=== PATIENT | female | born 1940 | race Caucasian/White ===

== ENCOUNTER 2017-01-20 12:16 | Inpatient (IN) | payer MEDICARE ==
[2017-01-20] MEDS ORDERED: LORazepam 0.5 MG TAB PO ONE (13:10)
[2017-01-20 13:30] VITALS: BMI 23.7
[2017-01-20] MEDS ORDERED: ACETAMINOPHEN TAB 325 MG TAB PO PRN (13:33)
[2017-01-20] MEDS ORDERED: ASPIRIN 325 MG TAB PO STA (14:39)
[2017-01-20] MEDS ORDERED: SODIUM CHLORIDE 0.9% 1,000 ML in EMPTY BAG 1 BAG IV ONE (14:39)
[2017-01-20] MEDS ORDERED: NITROGLYCERIN SL TABS 0.4 MG TAB SUBLINGUAL PRN (14:39)
[2017-01-20] MEDS ORDERED: ATORVASTATIN 80 MG TAB PO STA (14:39)
--- NOTE | 2017-01-20 14:43 | P.CRDCN ---
History of Present Illness Consult date: 01/20/17 Chief complaint: Chest discomfort History of present illness: This is a pleasant 76-year-old female patient with a past medical history significant for hypertension and dyslipidemia who presented to [facility] a few days ago with a chest discomfort. The patient was diagnosed with uncontrolled hypertension and acute pulmonary edema. She was started on Lasix IV with significant improvement in the shortness of breath. The EKG showed sinus rhythm with ST and T wave abnormalities in the anteroseptal leads concerning for ischemia. Echocardiogram showed moderate to severe LV dysfunction with hypokinesia of the inferior wall. The patient was seen and evaluated by Dr. Rosas who recommended proceeding with heart catheterization to rule out any severe underlying CAD. The patient is a scheduled to undergo heart catheterization in the a.m. Past Medical History Past Medical History: Hypertension History of Any Multi-Drug Resistant Organisms: None Reported Past Anesthesia/Blood Transfusion Reactions: No Reported Reaction Past Psychological History: No Psychological Hx Reported Smoking Status: Former smoker Past Alcohol Use History: None Reported Past Drug Use History: Opiates - Past Family History Father Family Medical History: Congestive Heart Failure (CHF) Mother Additional Family Medical History / Comment(s): Segunysm Medications and Allergies Home Medications Medication Instructions Recorded Confirmed Type Acetaminophen [Tylenol] 650 mg PO Q4H 01/20/17 01/20/17 History L.acidoph,Paracasei, B.lactis 1 cap PO DAILY 01/20/17 01/20/17 History [Probiotic] Labetalol [Trandate] 200 mg PO BID 01/20/17 01/20/17 History Lisinopril [Zestril] 20 mg PO DAILY 01/20/17 01/20/17 History Verapamil [Isoptin] 40 mg PO BID 01/20/17 01/20/17 History Allergies Allergy/AdvReac Type Severity Reaction Status Date / Time morphine Allergy Anaphylaxis Verified 01/20/17 13:38 Penicillins Allergy Anaphylaxis Verified 01/20/17 13:38 phenobarbital Allergy Anaphylaxis Verified 01/20/17 13:38 IVP Dye Allergy Anaphylaxis Uncoded 01/20/17 13:10 Physical Exam Vitals: Vital Signs Temp Pulse Resp BP Pulse Ox 01/20/17 12:31 98.3 F 88 16 153/85 96 Intake and Output 01/19/17 01/20/17 01/20/17 22:59 06:59 14:59 Other: Weight 64.7 kg Patient Weight 01/21/17 06:59 Weight 64.7 kg - Constitutional General appearance: no acute distress - Respiratory Respiratory: bilateral: diminished - Cardiovascular Rhythm: regular Heart sounds: normal: S1, S2 Results Current Medications Generic Name Dose Route Start Last Admin Trade Name Freq PRN Reason Stop Dose Admin Acetaminophen 650 mg 01/20/17 13:33 01/20/17 13:39 Tylenol Tab PO 650 mg Q6HR PRN Administration Fever and/ or Pain Intake and Output 01/19/17 01/20/17 01/20/17 22:59 06:59 14:59 Other: Weight 64.7 kg Patient Weight 01/21/17 06:59 Weight 64.7 kg Assessment and Plan Plan: This is a pleasant 76-year-old female patient with prior hypertension who was admitted to the hospital with congestive heart failure. She was found to have cardiomyopathy and known if is ischemic or nonischemic. The EKG changes as well as echocardiogram findings are consistent with severe underlying CAD. The patient is scheduled to undergo a heart catheterization was Dr. Hernández tomorrow.
[2017-01-20 15:06] LABS: Basophils % (A) 0 %; CHCM 32.4; Eosinophils # (A) 0.1 k/uL (0-0.7); Eosinophils % (A) 2 %; HCT 42.6 % (34.0-46.0); HDW 2.41; HGB 14.2 gm/dL (11.4-16.0); Luc # (Auto) 0.13; Luc % (Auto) 2; Lymphocytes % (A) 13 %; MCHC 33.4 g/dL (31.0-37.0); Mean Platelet Volume 8.5; Monocytes # (A) 0.5 k/uL (0-1.0); Monocytes % (A) 7 %; Neutrophils # (A) 5.6 k/uL (1.3-7.7); Neutrophils % (A) 77 %; RBC 4.59 m/uL (3.80-5.40); RDW 13.5 % (11.5-15.5); WBC 7.3 k/uL (3.8-10.6); WBC (Perox) 7.51
[2017-01-20 15:17] LABS: Anion Gap 13 mmol/L; Blood Urea Nitrogen 24 mg/dL (7-17); Calcium 9.2 mg/dL (8.4-10.2); Carbon Dioxide 22 mmol/L (22-30); Chloride 107 mmol/L (98-107); Glucose 150 mg/dL (74-99); Non-African American GFR(MDRD) >60 (>60 ml/min/1.73 sqM); Sodium 142 mmol/L (137-145)
[2017-01-20 15:20] LABS: INR 0.9 (<1.2); Prothrombin Time 9.7 sec (9.0-12.0)
--- NOTE | 2017-01-20 16:03 | P.HPIM ---
History of Present Illness H&P Date: 01/20/17 Chief Complaint: chest pain/acute systolic heart failure This is a 76-year-old female one of Dr. Hernández and Dr. Browinng with a previous medical history significant hypertension and hypertensive cardio vascular disease, hyperlipidemia, history of neuropathy, glaucoma, peptic ulcer disease status post EGD with, history of remote seizure disorder back 35 years ago, history of narcotic dependence, apparently patient was in her usual state of health about 2 month ago when she developed to have an increased shortness breath associated with increased weakness , patient woke up on morning complaining of increased shortness of breath she could not even walk for few steps she ended up admitted to the hospital at [facility] she was seen in consultation by cardiology she had an echocardiogram that showed a severe LV dysfunction with the inferior wall hypokinesia with an EKG suggestive of ischemia patient was transferred from [facility] to [facility] and she was admitted under were service and she is scheduled to go for left heart catheterization tomorrow morning. Review of Systems Constitutional: Reports weakness, Denies anorexia, Denies chronic headaches, Denies lethargy, Denies malaise, Denies weight gain, Denies weight loss Eyes: denies blurred vision, denies bulging eye, denies decreased vision, denies diplopia Ears: deny: decreased hearing Ears, nose, mouth and throat: Denies dysphagia, Denies sore throat, Denies vertigo Cardiovascular: Reports chest pain, Reports dyspnea on exertion, Reports high blood pressure, Reports rapid heart beat, Reports shortness of breath, Denies claudication, Denies leg edema, Denies syncope Respiratory: Reports dyspnea, Denies congestion, Denies cough, Denies cough with sputum, Denies home oxygen, Denies sleep apnea, Denies snoring, Denies wheezing Gastrointestinal: Denies abdominal pain, Denies bloating, Denies BRBPR, Denies early satiety, Denies excessive gas, Denies loss of appetite, Denies melena, Denies nausea, Denies vomiting Genitourinary: Denies dysuria, Denies urgency Menstruation: Reports post hysterectomy, Reports postmenopausal Musculoskeletal: Denies myalgias Musculoskeletal: absent: ankle pain, ankle stiffness, ankle swelling, elbow pain , elbow stiffness, elbow swelling, foot pain, foot stiffness, foot swelling, hand pain, hand stiffness, hand swelling, hip pain, hip stiffness, hip swelling , knee pain, knee stiffness, knee swelling, shoulder pain, shoulder stiffness, shoulder swelling, wrist pain, wrist stiffness, wrist swelling Integumentary: Denies pruritus, Denies rash Neurological: Denies numbness, Denies weakness Psychiatric: Reports anxiety, Denies depression Endocrine: Denies fatigue, Denies weight change Past Medical History Past Medical History: Coronary Artery Disease (CAD), Hyperlipidemia, Hypertension, Osteoarthritis (OA), Thyroid Disorder History of Any Multi-Drug Resistant Organisms: None Reported Past Surgical History: Bowel Resection, Cholecystectomy, Hysterectomy Additional Past Surgical History / Comment(s): Thyroid nodule post ablation, exploratory laparotomy with bowel resection due to bowel obstruction, cholecystectomy, total abdominal hysterectomy with bilateral salpingo- oophorectomy due to endometriosis and fibroid tumors, bilateral cataract surgery. 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.) Past Alcohol Use History: None Reported Past Drug Use History: Opiates - Past Family History Father Family Medical History: Congestive Heart Failure (CHF) (father at age of 86 from congestive heart failure.) Mother Family Medical History: Congestive Heart Failure (CHF), Vascular Disorder ( mother at age of 82 from congestive heart failure also she had the brain aneurysm but she ended up dying from abdominal aortic aneurysm.) Additional Family Medical History / Comment(s): Anuerysm Sister(s) Family Medical History: Diabetes Mellitus (patient has one sister with diabetes mellitus type 2.) Daughter(s) Family Medical History: Diabetes Mellitus (patient has one daughter with diabetes mellitus type 2.) Son(s) Family Medical History: Cancer (patient has one son with metastatic stage IV lung cancer with metastases to the bone.) Medications and Allergies Home Medications Medication Instructions Recorded Confirmed Type Acetaminophen [Tylenol] 650 mg PO Q4H 01/20/17 01/20/17 History L.acidoph,Paracasei, B.lactis 1 cap PO DAILY 01/20/17 01/20/17 History [Probiotic] Labetalol [Trandate] 200 mg PO BID 01/20/17 01/20/17 History Lisinopril [Zestril] 20 mg PO DAILY 01/20/17 01/20/17 History Verapamil [Isoptin] 40 mg PO BID 01/20/17 01/20/17 History Allergies Allergy/AdvReac Type Severity Reaction Status Date / Time morphine Allergy Anaphylaxis Verified 01/20/17 13:38 Penicillins Allergy Anaphylaxis Verified 01/20/17 13:38 phenobarbital Allergy Anaphylaxis Verified 01/20/17 13:38 IVP Dye Allergy Anaphylaxis Uncoded 01/20/17 13:10 Physical Exam Vitals: Vital Signs Temp Pulse Resp BP Pulse Ox 01/20/17 12:31 98.3 F 88 16 153/85 96 Intake and Output 01/20/17 01/20/17 01/20/17 06:59 14:59 22:59 Other: Weight 64.7 kg Patient Weight 01/21/17 06:59 Weight 64.7 kg - Constitutional General appearance: mild distress - EENT Eyes: anicteric sclerae, EOMI, PERRLA, no ptosis, no scleral icterus, normal appearance ENT: hearing grossly normal, NA/AT, normal oropharynx, no thrush Ears: bilateral: normal - Neck Neck: no lymphadenopathy, normal ROM, no rigidity, no stridor, no thyromegaly Carotids: bilateral: upstroke normal Thyroid: bilateral: normal size - Respiratory Respiratory: bilateral: diminished, negative: dullness, rales, rhonchi, wheezing , prolonged expiration, prolonged inspiration - Cardiovascular Rhythm: regular Heart sounds: normal: S1, S2 Abnormal Heart Sounds: systolic murmur, no rub, S3 Gallop, no click - Gastrointestinal General gastrointestinal: normal bowel sounds, soft, no splenomegaly, no tenderness, no umbilical hernia, no ventral hernia - Integumentary Integumentary: normal, normal turgor - Neurologic Neurologic: CNII-XII intact - Musculoskeletal Musculoskeletal: gait normal, strength equal bilaterally - Psychiatric Psychiatric: A&O x's 3, appropriate affect, intact judgment & insight Results CBC & Chem 7: 01/20/17 14:55 01/20/17 14:55 Labs: Abnormal Lab Results - Last 24 Hours (Table) 01/20/17 Range/Units 14:55 BUN 24 H (7-17) mg/dL Creatinine 0.50 L (0.52-1.04) mg/dL Glucose 150 H (74-99) mg/dL Thrombosis Risk Factor Assmnt - DVT/VTE Prophylaxis DVT/VTE Prophylaxis: Pharmacologic Prophylaxis ordered, Mechanical Prophylaxis ordered - Choose All That Apply Any of the Below Risk Factors Present?: No Other Risk Factors: Yes Each Risk Factor Represents 2 Points: Age 61-74 years Other congenital or acquired thrombophilia - If yes, enter type in comment: No Thrombosis Risk Factor Assessment Total Risk Factor Score: 2 Thrombosis Risk Factor Assessment Level: Low Risk Assessment and Plan Plan: Assessment and plan: 1. Moderate LV dysfunction with inferior hypokinesia suggestive of CAD with cardiomyopathy. aspirin 325 mg orally once every day, labetalol 200 mg orally twice every day, lisinopril 20 mg orally once every day, hold off verapamil for now, Lipitor 80 mg orally once every day, patient is scheduled to go for left heart catheterization tomorrow morning with Dr. Rosas. 2. Hypertension and hypertensive cardio vascular disease. Continue labetalol 200 mg orally twice every day, lisinopril 20 mg orally once every day, hold off verapamil. 3. Hyperlipidemia. Lipitor 40 mg orally once every day. 4. Possible neuropathy. She would need to be evaluated as an outpatient with EMG nerve conduction study. 5. History of peptic ulcer disease. Continue patient on Protonix 40 mg orally once every day. 6. Glaucoma. Stable at this time. 7. DVT prophylaxis. Continue Lovenox 40 mg subcutaneously daily. 8. GI prophylaxis. Continue Protonix 40 mg orally once every day. 9. Patient is full code. 10. Admit to inpatient. Estimate a length of stay 2 midnights.
[2017-01-20] MEDS: ACETAMINOPHEN TAB 325 MG TAB PO SCH ×3 (17:18→23:42)
[2017-01-20] MEDS: ENOXAPARIN 40 MG/0.4 ML SYRINGE SQ SCH (17:21)
[2017-01-20] MEDS ORDERED: SODIUM CHLORIDE 0.9% 1,000 ML IV SCH (17:30)
[2017-01-20] MEDS: ALPRAZolam 0.25 MG TAB PO PRN (20:10)
[2017-01-20] MEDS: LABETALOL 200 MG TAB PO SCH (20:11)
[2017-01-20] MEDS: SODIUM CHLORIDE 0.9% 1,000 ML IV SCH (20:13)
[2017-01-21] MEDS: ALPRAZolam 0.25 MG TAB PO PRN ×2 (03:56→14:07)
[2017-01-21] MEDS: ACETAMINOPHEN TAB 325 MG TAB PO SCH ×3 (03:56→12:01)
[2017-01-21 04:25] LABS: Basophils % (A) 0 %; CH 30.5; CHCM 32.4; Eosinophils # (A) 0.1 k/uL (0-0.7); Eosinophils % (A) 1 %; HCT 39.4 % (34.0-46.0); HDW 2.41; HGB 12.7 gm/dL (11.4-16.0); Luc # (Auto) 0.18; Luc % (Auto) 3; Lymphocytes # (A) 1.2 k/uL (1.0-4.8); Lymphocytes % (A) 17 %; MCH 30.6 pg (25.0-35.0); MCHC 32.3 g/dL (31.0-37.0); MCV 94.7 fL (80.0-100.0); Mean Platelet Volume 9.2; Monocytes # (A) 0.6 k/uL (0-1.0); Monocytes % (A) 8 %; Neutrophils # (A) 4.8 k/uL (1.3-7.7); Neutrophils % (A) 70 %; RBC 4.16 m/uL (3.80-5.40); RDW 14.7 % (11.5-15.5); WBC 6.9 k/uL (3.8-10.6); WBC (Perox) 6.71
[2017-01-21 04:33] LABS: Anion Gap 11 mmol/L; Blood Urea Nitrogen 29 mg/dL (7-17); Carbon Dioxide 22 mmol/L (22-30); Chloride 109 mmol/L (98-107); Glucose 112 mg/dL (74-99); Non-African American GFR(MDRD) >60 (>60 ml/min/1.73 sqM); Potassium 4.2 mmol/L (3.5-5.1); Sodium 142 mmol/L (137-145)
[2017-01-21] MEDS: ENOXAPARIN 40 MG/0.4 ML SYRINGE SQ SCH (06:34)
[2017-01-21] MEDS ORDERED: ASPIRIN 325 MG TAB PO STA (06:37)
[2017-01-21] MEDS ORDERED: ATORVASTATIN 80 MG TAB PO STA (06:38)
[2017-01-21] MEDS: LABETALOL 200 MG TAB PO SCH (06:39)
[2017-01-21] MEDS ORDERED: methylPREDNISolone SOD SUCCI 125 MG/2 ML VIAL IV ONE (07:01)
[2017-01-21] MEDS ORDERED: methylPREDNISolone SOD SUCCI 125 MG/2 ML VIAL ONE (07:18)
[2017-01-21] MEDS ORDERED: diphenhydrAMINE 50 MG/ML 1 ML VIAL ONE (07:18)
[2017-01-21] MEDS ORDERED: MIDAZOLAM 2 MG/2 ML VIAL ONE (07:18)
[2017-01-21] MEDS ORDERED: LIDOCAINE 2% INJ 20 MG/ML (20 ML MDV) ONE (07:18)
[2017-01-21] MEDS ORDERED: PANTOPRAZOLE 40 MG TABLET PO SCH (07:30)
[2017-01-21] MEDS ORDERED: SODIUM CHLORIDE 0.9% 500 ML IV ONE (07:30)
[2017-01-21] MEDS ORDERED: methylPREDNISolone SOD SUCCI 125 MG/2 ML VIAL IVP ONE (07:36)
[2017-01-21] MEDS ORDERED: diphenhydrAMINE 50 MG/ML 1 ML VIAL IVP ONE (07:36)
[2017-01-21] MEDS: MIDAZOLAM 2 MG/2 ML VIAL IVP ONE ×2 (07:37→07:45)
[2017-01-21] MEDS ORDERED: LIDOCAINE 2% INJ 20 MG/ML SQ ONE (07:42)
[2017-01-21] MEDS ORDERED: FUROSEMIDE 10 MG/ML 4 ML VIAL ONE (07:59)
[2017-01-21] MEDS ORDERED: FUROSEMIDE 10 MG/ML 4 ML VIAL IVP ONE (08:00)
[2017-01-21] MEDS ORDERED: IODIXANOL 320 MG/ML 100 ML INTRAARTER ONE (08:04)
[2017-01-21] MEDS ORDERED: RX INFO: IV CONTRAST WAS GIVEN 1 EACH MISC MISCELLANE PRN (08:05)
--- NOTE | 2017-01-21 08:47 | CC ---
INDICATION: Cardiomyopathy with new onset congestive heart failure. PROCEDURE NOTE: After obtaining informed consent, left heart catheterization and coronary angiogram are performed via the right femoral artery using standard Venkatesh catheters. The patient tolerated the procedure well without any obvious immediate complications. A femoral angiogram was performed and decision was made for manual hemostasis. Patient received conscious sedation with total sedation time was 18 minutes. FINDINGS: 1. HEMODYNAMICS: Left ventricular end-diastolic pressure is ( ) mm. There is no significant gradient across the aortic valve. 2. LEFT VENTRICULOGRAM: The left ventriculogram is not performed. 3. ANGIOGRAPHIC DATA: Right coronary artery appears chronically occluded in its proximal part with extensive left to right collaterals. We used both ( ) and Venkatesh catheter to engaged it and aortogram was also performed to image the right coronary artery. Left main coronary artery is a normal size vessel and is free of stenosis, divides into left anterior descending coronary artery and circumflex coronary artery. Circumflex coronary artery and its branches show mild nonobstructive disease. LAD shows mild plaque in its mid portion. Aortogram was performed mainly to locate the right coronary artery. There is no evidence of aortic aneurysm or dissection. CONCLUSIONS: 1. Chronic total occlusion of the right coronary artery. 2. Elevated left ventricular end-diastolic pressures. PLAN: The patient's management is going to be in the form of optimal medical therapy with beta blockers, KRISTY inhibitors, diuretics, statins. Hopefully, she can be discharged home this evening if she is feeling well and off home O2 and follow up with me in a week's time. REINA
[2017-01-21] MEDS ORDERED: FUROSEMIDE 40 MG TAB PO SCH (09:00)
[2017-01-21] MEDS ORDERED: LACTOBACILLUS ACIDOPH & BULGAR 1 EACH PACKET PO SCH (09:00)
[2017-01-21] MEDS ORDERED: LISINOPRIL 20 MG TAB PO SCH (09:00)
[2017-01-21] MEDS: SODIUM CHLORIDE 0.9% 1,000 ML IV SCH ×2 (11:57→14:08)
[2017-01-21 12:33] VITALS: RESP 16
[2017-01-21 12:39] VITALS: BP 94/52; PULSE 79; TEMP 98.8
--- NOTE | 2017-01-21 15:17 | P.DS ---
Providers Date of admission: 01/20/17 12:16 Expected date of discharge: 01/21/17 Attending physician: Diann Handley Primary care physician: [facility] Course: This is a 76-year-old female one of Dr. Hernández and Dr. Browning with a previous medical history significant hypertension and hypertensive cardio vascular disease, hyperlipidemia, history of neuropathy, glaucoma, peptic ulcer disease status post EGD with, history of remote seizure disorder back 35 years ago, history of narcotic dependence, apparently patient was in her usual state of health about 2 month ago when she developed to have an increased shortness breath associated with increased weakness , patient woke up on morning complaining of increased shortness of breath she could not even walk for few steps she ended up admitted to the hospital at [facility] she was seen in consultation by cardiology she had an echocardiogram that showed a severe LV dysfunction with the inferior wall hypokinesia with an EKG suggestive of ischemia patient was transferred from [facility] to [facility] and she was admitted under were service and she is scheduled to go for left heart catheterization tomorrow morning. 01/21: Patient underwent heart catheterization that showed chronic total occlusion of the right coronary artery and elevated left ventricular end- diastolic pressure. No aortic aneurysm or dissection. Recommendations were to optimize medical therapy. Patient is feeling well in the afternoon after the procedure and is anxious to be discharged home. She has no chest pain or shortness of breath. Patient will be discharged home today in stable condition. Discharge diagnoses: 1. Moderate LV dysfunction with inferior hypokinesia suggestive of CAD with cardiomyopathy. 2. Hypertension and hypertensive cardio vascular disease. 3. Hyperlipidemia. 4. Possible neuropathy. She would need to be evaluated as an outpatient with EMG nerve conduction study. 5. History of peptic ulcer disease. 6. Glaucoma. Stable at this time. Discharge plan: Home Impression and plan of care have been directed as dictated by the signing physician. Annalisa Mcmahan nurse practitioner acting as scribe for signing physician. Patient Condition at Discharge: Good Plan - Discharge Summary New Discharge Prescriptions: New Furosemide [Lasix] 40 mg PO DAILY #30 tab Continue Acetaminophen [Tylenol] 650 mg PO Q4H Lisinopril [Zestril] 20 mg PO DAILY Labetalol [Trandate] 200 mg PO BID L.acidoph,Paracasei, B.lactis [Probiotic] 1 cap PO DAILY Discontinued Verapamil [Isoptin] 40 mg PO BID Discharge Medication List Acetaminophen [Tylenol] 650 mg PO Q4H 01/20/17 [History] L.acidoph,Paracasei, B.lactis [Probiotic] 1 cap PO DAILY 01/20/17 [History] Labetalol [Trandate] 200 mg PO BID 01/20/17 [History] Lisinopril [Zestril] 20 mg PO DAILY 01/20/17 [History] Furosemide [Lasix] 40 mg PO DAILY #30 tab 01/21/17 [Rx] Follow up Appointment(s)/Referral(s): Saniya Browning MD [Primary Care Provider] - 01/28/17 9:00 am Alon Hernández MD [STAFF PHYSICIAN] - 01/28/17 2:30 pm Patient Instructions/Handouts: *Surgery [facility] - After Heart Catheterization - Gifted Program Teacher Instructions, Heart Failure (DC), Left Heart Catheterization (DC ), Heart Catheterization (DC) Discharge Disposition: HOME SELF-CARE
== END 2017-01-21 15:59 | disposition home or self-care (01) | DRG 286 ==
LOC: 6SEL 12:16
PROVIDERS: ADMIT Internal Medicine; ATTEND Internal Medicine
PROC: B310YZZ Fluoroscopy of Thoracic Aorta using Other Contrast (ICD-10-PCS; 2017-01-21)
PROC: B211YZZ Fluoroscopy of Multiple Coronary Arteries using Other Contrast (ICD-10-PCS; 2017-01-21)
PROC: 4A023N7 Measurement of Cardiac Sampling and Pressure, Left Heart, Percutaneous Approach (ICD-10-PCS; principal; 2017-01-21 07:20)
DX: I25.10 Atherosclerotic heart disease of native coronary artery without angina pectoris (principal); I50.21 Acute systolic (congestive) heart failure; I42.9 Cardiomyopathy, unspecified; I25.82 Chronic total occlusion of coronary artery; I11.0 Hypertensive heart disease with heart failure; E78.5 Hyperlipidemia, unspecified; H40.9 Unspecified glaucoma; G62.9 Polyneuropathy, unspecified; M19.90 Unspecified osteoarthritis, unspecified site; Z79.899 Other long term (current) drug therapy; Z87.891 Personal history of nicotine dependence; Z88.5 Allergy status to narcotic agent; Z88.0 Allergy status to penicillin; Z88.8 Allergy status to other drugs, medicaments and biological substances; Z91.041 Radiographic dye allergy status; Z82.49 Family history of ischemic heart disease and other diseases of the circulatory system
CPT/HCPCS: 80048; 85025; 85610; 93458

== ENCOUNTER → 2023-04-26 | Outpatient (CLI) | payer MEDICARE ==
--- NOTE | 2023-04-30 03:34 | SLS ---
SLEEP STUDY This is a home sleep study. HISTORY OF PRESENT ILLNESS: An 82-year-old female patient with severe COPD, diastolic heart failure, hypertension, coronary artery disease, diabetes mellitus. The patient was suspected to have obstructive sleep apnea and based on that, a home sleep study was ordered. The patient was concerned of her symptoms of snoring and based on that, a home sleep study was ordered. PERTINENT PHYSICAL FINDINGS: The patient's body mass index is 24.5. The patient has a weight of 147 pounds and her height is 5 feet and 5 inches. TECHNICAL DESCRIPTION: The Cono-C ApneaLink stent was used to complete this home sleep study. This is a type 3 home sleep study. The total recording duration was 9 hours and 57 minutes. The study started at 8:29 p.m., ended at 6:27 a.m. This was an adequate study as the patient had a total of 9 hours and 47 minutes of flow monitoring and 9 hours and 31 minutes of oxygen saturation monitoring. RESULTS: The respiratory analysis showed a total of 1 obstructive hypopnea, and 5 obstructive apneas, and the resulting AHI was 0.6. OXYGENATION ANALYSIS: The patient's lowest pulse ox was 72%. Average pulse ox was 95%. Baseline pulse ox was 97%. This patient spent 33 minutes of sleep time at a pulse ox of 88% and below. CARDIAC SUMMARY: Average heart rate was 63, minimum heart rate 45, maximum heart rate was 143. IMPRESSION: 1. Primary snoring, no evidence of any sleep breathing disorder. Apnea-hypopnea index was at 0.6. 2. Mild nocturnal oxygen desaturation probably related to her severe chronic obstructive pulmonary disease. 3. Severe chronic obstructive pulmonary disease. 4. Coronary artery disease. 5. Diabetes mellitus. 6. Hyperlipidemia. 7. Chronic heart failure. 8. Previous history of CVA. PLAN: No need for CPAP therapy at this point in time. Optimize COPD and CHF. Follow up with Pulmonary. MMODL / IJN: [id number] /
== END ==
LOC: 3 N SLEEP 10:12
PROVIDERS: ATTEND Internal Medicine Critical Care Medicine
DX: G47.33 Obstructive sleep apnea (adult) (pediatric) (principal); Z88.0 Allergy status to penicillin; Z88.5 Allergy status to narcotic agent; Z91.041 Radiographic dye allergy status; Z88.8 Allergy status to other drugs, medicaments and biological substances; Z87.891 Personal history of nicotine dependence; G47.36 Sleep related hypoventilation in conditions classified elsewhere; J44.9 Chronic obstructive pulmonary disease, unspecified; I25.10 Atherosclerotic heart disease of native coronary artery without angina pectoris; E11.9 Type 2 diabetes mellitus without complications; E78.5 Hyperlipidemia, unspecified; I50.9 Heart failure, unspecified; Z86.73 Personal history of transient ischemic attack (TIA), and cerebral infarction without residual deficits

== ENCOUNTER → 2025-01-01 | Outpatient (CLI) | payer MEDICARE ==
[2025-01-01 11:42] LABS: African American GFR (CKD) 79 (>60 ml/min/1.73 sqM); Blood Urea Nitrogen 16 mg/dL (7-17); Non-African American GFR(CKD) 68 (>60 ml/min/1.73 sqM)
--- NOTE | 2025-01-04 08:08 | CT ---
EXAMINATION TYPE: CT chest w con DATE OF EXAM: 01/01/2025 12:24 PM COMPARISON: Radiographs 12/11/2024 CLINICAL INDICATION: Female, 84 years old with history of R93.89 ABNORMAL FINDINGS ON DX IMAGING OF O TH BODY; PHH, abnormal cxr TECHNIQUE: Multiple axial images were obtained through the chest. Sagittal and coronal reformats were created for review. MIP was performed on a separate workstation. Contrast used:100ml mL of Isovue [address] DLP: 281 mGycm, Automated exposure control for dose reduction was used. FINDINGS: Scattered hypodensities within the thyroid gland measuring up to 9 mm. Right lobe is larger than the left. Heart borderline in size with a small to moderate sized pericardial effusion measuring 1 cm thick. LA D and RCA coronary artery calcifications are present. Mild aortic valve calcifications. Ectatic aortic root and ascending aorta measuring up to 3.5 cm. Upper descending thoracic aorta 3.1 c m. Scattered borderline aneurysmal lower descending thoracic aorta to 3.0 cm. Mild atherosclerotic ca lcifications are present throughout. Advanced emphysematous change. Irregular pleural parenchymal thickening medial left apex measuring 2. 9 cm and posterior right upper lobe measuring 3.2 cm. These findings should be reassessed on follow-u p to exclude neoplasm. Additional scattered areas of stranding pleural-parenchymal density mid and lower lungs, probably sca rring. Possible trace bilateral pleural effusions. Visualized upper abdomen shows intrahepatic biliary ductal dilatation. Scan only extends into the mid portion of the liver. Possible tiny hiatal hernia. Bones: Accentuated upper thoracic kyphosis. Moderate to severe degenerative disc disease towards the left at T9-T10. Grade 1 anterolisthesis T1-T3 levels. There is 1.3 cm nodular low density at the righ t T11-T12 neuroforamen. IMPRESSION: 1. COPD with advanced emphysema. Masslike subpleural opacity medial left apex measuring 2.9 cm and po sterior right upper lobe measuring 3.2 cm. Possible pleural-parenchymal scarring. Reassess at 2-3 mon th follow-up CT to exclude early neoplasm. 2. There is borderline heart size but with a small to moderate sized pericardial effusion measuring 1 .0 cm thick. Clinically correlate. 3. Trace pleural effusions. 4. Visualized upper abdomen with possible intrahepatic biliary ductal dilatation. Correlate with yudith line phosphatase and bilirubin levels. Consider ultrasound to assess bile duct caliber. 5. 1.3 cm nodularity right T11-T12 neuroforamen, favor either a prominent perineural cyst or nerve sh eath tumor. This can also be reassessed at follow-up. [facility], , 01/04/2025 8:05 AM
== END | disposition home or self-care (01) ==
LOC: RADCTMAIN 10:50
PROVIDERS: ATTEND Internal Medicine
DX: J43.9 Emphysema, unspecified (principal); R93.89 Abnormal findings on diagnostic imaging of other specified body structures; I31.39 Other pericardial effusion (noninflammatory); J90 Pleural effusion, not elsewhere classified; R91.8 Other nonspecific abnormal finding of lung field; G96.191 Perineural cyst
CPT/HCPCS: 82565; 84520; 71260; 36415; Q9967